=== PATIENT | male | born 1970 | race Hispanic/Latino ===

== ENCOUNTER 2019-02-07 20:24 | Inpatient (IN) | payer BC, SELFPAY ==
[2019-02-07 21:13] LABS: Absolute Neutrophil 15.6 K/uL (1.8-8.0); Basophils % 0.6 % (0-1.3); Eosinophils % 0.7 % (0-4.4); Hematocrit 48.4 % (39.6-49.0); Lymphocytes % 19.3 % (15.3-44.8); MPV 9.1 fL (7.6-11.3); Monocytes % 4.7 % (3.3-12.3); RBC Red Blood Cell Count 5.45 M/uL (4.33-5.43)
[2019-02-07] MEDS ORDERED: MORPHINE 4 MG/ML SYR ONE ×2 (21:16→23:20)
[2019-02-07] MEDS ORDERED: ONDANSETRON 4 MG/2 ML VIAL ONE (21:16)
[2019-02-07 21:36] LABS: ALT/SGPT 27 U/L (12-78); AST/SGOT 14 U/L (15-37); Albumin 3.8 g/dL (3.4-5.0); Alkaline Phosphatase 76 U/L (45-117); BUN Blood Urea Nitrogen 17 mg/dL (7-18); Bicarbonate 24 mmol/L (21-32); Bilirubin Direct 0.1 mg/dL (0-0.2); Bilirubin Total 0.7 mg/dL (0.2-1.0); Glucose Level 113 mg/dL (74-106); Lipase 113 U/L (73-393); Sodium Level 141 mmol/L (136-145); Troponin (Emerg Dept Use Only) < 0.02 ng/mL (0.0-0.045)
[2019-02-07 21:40] LABS: Potassium 2.9 mmol/L (3.5-5.1)
[2019-02-07 21:45] LABS: Blood Morphology Comment NOT SEEN (NOT SEEN); Platelet Estimate ADEQ
[2019-02-07] MEDS ORDERED: NA CHLORIDE 0.9% 1,000 ML ONE (22:33)
--- NOTE | 2019-02-07 23:25 | EDPHYS ---
Physician Documentation [facility] Name: Seng Daugherty Age: 48 yrs Sex: Male : 1970 Arrival Date: 02/07/2019 Time: 20:27 Bed 13 Private MD: ED Physician Judah Dan HPI: 02/07 20:43 This 48 yrs old Male presents to ER via Wheelchair with complaints of jmm Abdominal Pain. 20:43 The patient presents with abdominal pain that is diffuse. Onset: The symptoms/episode jmm began/occurred acutely, at 16:30. The symptoms do not radiate. Associated signs and symptoms: Pertinent positives: nausea and vomiting, Pertinent negatives: diarrhea. The symptoms are described as achy, sharp. Modifying factors: The symptoms are alleviated by nothing, the symptoms are aggravated by. This is a 48 year old male a history of htn that presents to the ED with complaints of diffuse abdominal pain beginning at approx 430 pm. Patient denies similar episode. Denies recent surgery. Denies infectious exposure. . Historical: - Allergies: 20:34 No Known Allergies; aj1 - Home Meds: 20:34 None [Active]; aj1 - PMHx: 20:34 Hypertension; aj1 - PSHx: 20:34 None; aj1 - Immunization history:: Adult Immunizations up to date. - Social history:: Smoking status: Patient uses tobacco products, smokes one pack cigarettes per day. - Ebola Screening: : Patient denies travel to an Ebola-affected area in the 21 days before illness onset. ROS: 20:43 Constitutional: Negative for fever, chills, and weight loss, Cardiovascular: Negative jmm for chest pain, palpitations, and edema, Respiratory: Negative for shortness of breath, cough, wheezing, and pleuritic chest pain. 20:43 Abdomen/GI: Positive for abdominal pain, nausea and vomiting. 20:43 All other systems are negative. Exam: 20:43 Head/Face: atraumatic. Eyes: EOMI, no conjunctival erythema appreciated ENT: Moist jmm Mucus Membranes Neck: Trachea midline, Supple Chest/axilla: Normal chest wall appearance and motion. Cardiovascular: Regular rate and rhythm. No edema appreciated Respiratory: Normal respirations, no respiratory distress appreciated 20:43 Back: Normal ROM Skin: General appearance color normal MS/ Extremity: Moves all extremities, no obvious deformities appreciated, no edema noted to the lower extremities Neuro: Awake and alert, normal gait Psych: Behavior is normal, Mood is normal, Patient is cooperative and pleasant 20:43 Constitutional: The patient appears alert, awake, in obvious pain, uncomfortable. 20:43 Abdomen/GI: Inspection: abdomen appears normal, Bowel sounds: normal, Palpation: soft, moderate abdominal tenderness, in all quadrants. Vital Signs: 20:34 BP 136 / 89; Pulse 83; Resp 18; Temp 97.9; Pulse Ox 100% on R/A; Weight 72.57 kg (R); aj1 Height 5 ft. 6 in. (167.64 cm) (R); Pain 10/10; 22:20 BP 142 / 96; Pulse 72; Resp 16; Pulse Ox 99% on R/A; jb4 23:30 BP 160 / 96; Pulse 79; Resp 16; Pulse Ox 100% on R/A; Pain 4/10; jb4 02/08 01:00 BP 166 / 93; Pulse 66; Resp 16; Temp 98.8(O); Pulse Ox 99% on R/A; jb4 02:00 BP 172 / 91; Pulse 72; Resp 16; Pulse Ox 100% on R/A; jb4 02:50 BP 137 / 71; Pulse 65; Resp 16; Temp 98.8(O); Pulse Ox 99% on R/A; jb4 02/07 20:34 Body Mass Index 25.82 (72.57 kg, 167.64 cm) aj1 MDM: 02/07 20:43 Patient medically screened. [facility] 23:23 Data reviewed: vital signs, nurses notes. Data interpreted: Pulse oximetry: on room air kb is 99 %. Interpretation: normal. Counseling: I had a detailed discussion with the patient and/or guardian regarding: the historical points, exam findings, and any diagnostic results supporting the discharge/admit diagnosis, lab results, radiology results, the need for further work-up and treatment in the hospital. Physician consultation: Francisco Pond MD was called at 23:23, regarding consult, patient's condition, and will see patient in inpatient room. 23:23 Physician consultation: Daniela Pond MD was called at 23:23, regarding admission, to [facility] the medical/surgical unit. patient's condition, and will see patient shortly. 02/07 20:43 Order name: Basic Metabolic Panel [facility] 02/07 20:43 Order name: CBC with Diff [facility] 02/07 20:43 Order name: Creatinine for Radiology [facility] 02/07 20:43 Order name: Hepatic Function; Complete Time: 21:47 [facility] 02/07 20:43 Order name: Lipase; Complete Time: 21:47 [facility] 02/07 20:43 Order name: Lactate; Complete Time: 21:47 [facility] 02/07 20:43 Order name: Troponin (emerg Dept Use Only); Complete Time: 21:47 [facility] 02/07 20:44 Order name: Basic Metabolic Panel; Complete Time: 21:47 [facility] 02/07 20:44 Order name: CBC with Automated Diff; Complete Time: 21:47 [facility] 02/07 20:44 Order name: Creatinine (Radiology Only); Complete Time: 21:33 [facility] 02/07 21:08 Order name: Type And Screen; Complete Time: 22:14 [facility] 02/07 21:45 Order name: Manual Differential; Complete Time: 21:47 [facility] 02/07 22:16 Order name: ABO/RH no charge; Complete Time: 22:16 [facility] 02/08 02:26 Order name: Comprehensive Metabolic Panel [facility] 02/07 20:43 Order name: IV Saline Lock; Complete Time: 21:01 [facility] 02/07 20:43 Order name: Labs collected and sent; Complete Time: 21:01 [facility] 02/07 20:43 Order name: CT Abd/Pelvis - W/Contrast [facility] 02/07 20:43 Order name: EKG - Nurse/Tech; Complete Time: 21:19 [facility] 02/08 02:26 Order name: Comprehensive Metabolic Panel [facility] 02/08 02:27 Order name: CONS Pharmacy Consult [facility] 02/08 02:27 Order name: NPO [facility] 02/08 03:16 Order name: Lactate Sepsis 2 HR Follow-up; Complete Time: 10:07 EDMS Administered Medications: 21:07 Drug: Zofran 4 mg Route: IVP; Site: right antecubital; jb4 21:30 Follow up: Response: No adverse reaction; Nausea is decreased jb4 21:11 Drug: morphine 4 mg Route: IVP; Site: right antecubital; jb4 21:40 Follow up: Response: No adverse reaction; Pain is decreased jb4 22:22 Drug: NS 0.9% 1000 ml Route: IV; Rate: 1 bolus; Site: right antecubital; jb4 23:20 Follow up: Response: No adverse reaction; IV Status: Completed infusion; IV Intake: jb4 1000ml 23:17 Drug: morphine 4 mg Route: IVP; Site: right antecubital; jb4 23:43 Follow up: Response: No adverse reaction; Pain is decreased jb4 23:42 Drug: NS 0.9% with KCl 20 mEq/L 1000 ml Route: IV; Rate: 125 ml/hr; Site: right jb4 antecubital; 02/08 04:04 Follow up: Response: No adverse reaction; IV Status: Infusion continued upon admission; jb4 IV Intake: 500ml 02/07 23:44 Not Given (Physician Discretion): cefOXitin 2 grams IVPB once over 30 mins; (mix in 100 jb4 mL NS) 02/08 01:59 Drug: cefOXitin 1 grams {Note: given IVP Per pharmacy protocol.} Route: IVPB; Infused jb4 Over: 30 mins; Site: right antecubital; 02:02 Follow up: Response: No adverse reaction; IV Status: Completed infusion; IV Intake: [id number] Disposition: 02/07/19 23:24 Hospitalization ordered by Daniela Pond for Observation. Preliminary diagnosis are Generalized abdominal pain, Elevated white blood cell count, Hypokalemia. - Bed requested for Telemetry/MedSurg (observation). - Status is Observation. jb4 - Condition is Stable. - Problem is new. - Symptoms are unchanged. UTI on Admission? No Signatures: Dispatcher [employer] EDHI Raven Webb, RO-C RO-Eugenia Monson RN RN Terri Monzon RN Erickson Hooper PA PA jmm Bryson, James, RN RN jb4 Corrections: (The following items were deleted from the chart) 02/07 23:25 23:24 Hospitalization Ordered by Daniela Pond MD for Observation. Preliminary kb diagnosis is Generalized abdominal pain. Bed requested for Telemetry/MedSurg (observation). Status is Observation. Condition is Stable. Problem is new. Symptoms are unchanged. UTI on Admission? No. kb 05/09 02:36 02/07 23:25 02/07/2019 23:24 Hospitalization Ordered by Daniela Pond MD for mw Observation. Preliminary diagnosis is Generalized abdominal pain; Elevated white blood cell count; Hypokalemia. Bed requested for Telemetry/MedSurg (observation). Status is Observation. Condition is Stable. Problem is new. Symptoms are unchanged. UTI on Admission? No. kb 02/08 04:07 02:36 02/07/2019 23:24 Hospitalization Ordered by Daniela Pond MD for Observation. jb4 Preliminary diagnosis is Generalized abdominal pain; Elevated white blood cell count; Hypokalemia. Bed requested for Telemetry/MedSurg (observation). Status is Observation. Condition is Stable. Problem is new. Symptoms are unchanged. UTI on Admission? No. mw
--- NOTE | 2019-02-07 23:25 | ER ---
Nurse's Notes [facility] Name: Seng Daugherty Age: 48 yrs Sex: Male : 1970 Arrival Date: 02/07/2019 Time: 20:27 Bed 13 Private MD: Diagnosis: Generalized abdominal pain;Elevated white blood cell count;Hypokalemia Presentation: 02/07 20:32 Presenting complaint: Patient states: Diffuse abdominal pain since 1630 today that aj1 became severe an hour ago. Patient reports vomiting, denies diarrhea, denies fever. Patient is diaphoretic, grabbing his stomach, restless. Reports that he thinks it might be related to a male enhancement pill that he took around noon. Transition of care: patient was not received from another setting of care. Onset of symptoms was February 07, 2019 at 16:30. Risk Assessment: Do you want to hurt yourself or someone else? Patient reports no desire to harm self or others. Initial Sepsis Screen: Does the patient meet any 2 criteria? No. Patient's initial sepsis screen is negative. Does the patient have a suspected source of infection? Yes: Acute abdominal pain. Care prior to arrival: None. 20:32 Method Of Arrival: Wheelchair aj1 20:32 Acuity: JARED 2 aj1 Triage Assessment: 20:34 General: Appears uncomfortable, Behavior is cooperative, restless. Pain: Complains of aj1 pain in abdomen diffusely Pain currently is 10 out of 10 on a pain scale. Neuro: Level of Consciousness is awake, alert, obeys commands. Cardiovascular: Patient's skin is warm and dry. Respiratory: Airway is patent Respiratory effort is even, unlabored, Respiratory pattern is regular, symmetrical. GI: Abdomen is flat, non-distended, Reports lower abdominal pain, upper abdominal pain. Historical: - Allergies: 20:34 No Known Allergies; aj1 - Home Meds: 20:34 None [Active]; aj1 - PMHx: 20:34 Hypertension; aj1 - PSHx: 20:34 None; aj1 - Immunization history:: Adult Immunizations up to date. - Social history:: Smoking status: Patient uses tobacco products, smokes one pack cigarettes per day. - Ebola Screening: : Patient denies travel to an Ebola-affected area in the 21 days before illness onset. Screenin:56 Abuse screen: Denies threats or abuse. Nutritional screening: No deficits noted. jb4 Tuberculosis screening: No symptoms or risk factors identified. Fall Risk IV access (20 points). Total Crawford Fall Scale indicates No Risk (0-24 pts). Assessment: 20:56 General: Appears distressed, uncomfortable, Behavior is cooperative, agitated, anxious. jb4 Pain: Complains of pain in abdomen Pain does not radiate. Pain currently is 10 out of 10 on a pain scale. Quality of pain is described as stabbing, Pain began 1630. Neuro: Level of Consciousness is awake, alert, obeys commands, Oriented to person, place, time, situation. Cardiovascular: Patient's skin is warm and dry. Respiratory: Airway is patent Respiratory effort is even, unlabored, Respiratory pattern is symmetrical, tachypnea. GI: Abdomen is flat, non-distended, Bowel sounds present X 4 quads. Abd is soft X 4 quads Abdomen is tender to palpation X 4 quads. : No signs and/or symptoms were reported regarding the genitourinary system. EENT: No signs and/or symptoms were reported regarding the EENT system. Derm: Skin is intact, Skin is pink, warm \T\ dry. Musculoskeletal: Circulation, motion, and sensation intact. 22:00 Reassessment: Patient appears in no apparent distress at this time. Patient and/or jb4 family updated on plan of care and expected duration. Pain level reassessed. Patient is alert, oriented x 3, equal unlabored respirations, skin warm/dry/pink. Patient states feeling better. 23:00 Reassessment: Patient appears in no apparent distress at this time. Patient and/or jb4 family updated on plan of care and expected duration. Pain level reassessed. Patient is alert, oriented x 3, equal unlabored respirations, skin warm/dry/pink. Pt reports increase in pain, provider notified, see MAR for orders. 02/08 00:00 Reassessment: Patient appears in no apparent distress at this time. Patient and/or jb4 family updated on plan of care and expected duration. Pain level reassessed. Patient is alert, oriented x 3, equal unlabored respirations, skin warm/dry/pink. 01:00 Reassessment: Patient appears in no apparent distress at this time. Patient and/or jb4 family updated on plan of care and expected duration. Pain level reassessed. Patient is alert, oriented x 3, equal unlabored respirations, skin warm/dry/pink. Patient states feeling better. 02:30 Reassessment: Patient appears in no apparent distress at this time. Patient and/or jb4 family updated on plan of care and expected duration. Pain level reassessed. Patient is alert, oriented x 3, equal unlabored respirations, skin warm/dry/pink. 03:45 Reassessment: Patient appears in no apparent distress at this time. Patient and/or jb4 family updated on plan of care and expected duration. Pain level reassessed. Patient is alert, oriented x 3, equal unlabored respirations, skin warm/dry/pink. Vital Signs: 02/07 20:34 BP 136 / 89; Pulse 83; Resp 18; Temp 97.9; Pulse Ox 100% on R/A; Weight 72.57 kg (R); aj1 Height 5 ft. 6 in. (167.64 cm) (R); Pain 10/10; 22:20 BP 142 / 96; Pulse 72; Resp 16; Pulse Ox 99% on R/A; jb4 23:30 BP 160 / 96; Pulse 79; Resp 16; Pulse Ox 100% on R/A; Pain 4/10; jb4 02/08 01:00 BP 166 / 93; Pulse 66; Resp 16; Temp 98.8(O); Pulse Ox 99% on R/A; jb4 02:00 BP 172 / 91; Pulse 72; Resp 16; Pulse Ox 100% on R/A; jb4 02:50 BP 137 / 71; Pulse 65; Resp 16; Temp 98.8(O); Pulse Ox 99% on R/A; jb4 02/07 20:34 Body Mass Index 25.82 (72.57 kg, 167.64 cm) aj ED Course: 02/07 20:27 Patient arrived in ED. 4 20:34 Triage completed. aj1 20:34 Arm band placed on Patient Patient triaged in bed 13. Primary nurse notified of patient aj1 diaphoretic, severe abdominal pain. 20:38 [facility] 20:38 Judah Dan MD is Attending Physician. dyana 20:46 Radiology exam delayed due to lab results not completed at this time. (BUN/Creatinine). vm2 20:56 Patient has correct armband on for positive identification. Placed in gown. Bed in low jb4 position. Call light in reach. Side rails up X 1. Pulse ox on. NIBP on. 20:56 Initial lab(s) drawn, by me, sent to lab. EKG done, by ED staff, reviewed by Erickson HUBBARD. Inserted saline lock: 20 gauge in right antecubital area, using aseptic technique. Blood collected. 21:00 Chip Hahn, RN is Primary Nurse. jb4 21:41 Notified Nurse Practitioner and/or Physician Lane Attendant of a critical lab result(s), lp1 lactate 3.1, Potassium 2.9. 22:13 CT Abd/Pelvis - W/Contrast In Process Unspecified. EDMS 22:16 PHCP role handed off by Erickson Estes PA kb 22:16 Raven Webb FNP-C is PHCP. kb 23:24 Daniela Pond MD is Hospitalizing Provider. kb 02/08 03:45 No provider procedures requiring assistance completed. Patient admitted, IV remains in jb4 place. Administered Medications: 02/07 21:07 Drug: Zofran 4 mg Route: IVP; Site: right antecubital; jb4 21:30 Follow up: Response: No adverse reaction; Nausea is decreased jb4 21:11 Drug: morphine 4 mg Route: IVP; Site: right antecubital; jb4 21:40 Follow up: Response: No adverse reaction; Pain is decreased jb4 22:22 Drug: NS 0.9% 1000 ml Route: IV; Rate: 1 bolus; Site: right antecubital; jb4 23:20 Follow up: Response: No adverse reaction; IV Status: Completed infusion; IV Intake: jb4 1000ml 23:17 Drug: morphine 4 mg Route: IVP; Site: right antecubital; jb4 23:43 Follow up: Response: No adverse reaction; Pain is decreased jb4 23:42 Drug: NS 0.9% with KCl 20 mEq/L 1000 ml Route: IV; Rate: 125 ml/hr; Site: right jb4 antecubital; 02/08 04:04 Follow up: Response: No adverse reaction; IV Status: Infusion continued upon admission; jb4 IV Intake: 500ml 02/07 23:44 Not Given (Physician Discretion): cefOXitin 2 grams IVPB once over 30 mins; (mix in 100 jb4 mL NS) 02/08 01:59 Drug: cefOXitin 1 grams {Note: given IVP Per pharmacy protocol.} Route: IVPB; Infused jb4 Over: 30 mins; Site: right antecubital; 02:02 Follow up: Response: No adverse reaction; IV Status: Completed infusion; IV Intake: [id number] Intake: 02/07 23:20 IV: 1000ml; Total: 1000ml. jb4 02/08 02:02 IV: 10ml; Total: 1010ml. jb4 04:04 IV: 500ml; Total: 1510ml. jb4 Outcome: 02/07 23:24 Decision to Hospitalize by Provider. kristen 02/08 03:45 Admitted to Med/surg accompanied by tech, family with patient, room 204, with chart, jb4 Report called to GILBERTO Chávez Condition: stable Discharge instructions given to patient, family, Instructed on the need for admit, Demonstrated understanding of instructions. 04:07 Patient left the ED. jb4 Signatures: Dispatcher [employer] EDMS Raven Webb, BRICK BURNER-C BRICK BURNER-CkEugenia Millard, RN RN aj1 Erickson Estes PA PA jmm Pena, Laura, GILBERTO RN lp1 Chip Hahn RN RN jb4 Lelo Frazier [facility]
[2019-02-07] MEDS ORDERED: NS KCL 20MEQ 1,000 ML IV ONE (23:46)
[2019-02-08] MEDS ORDERED: CEFOXITIN/SWI 1gm 1 GM/10 ML SYR ONE (01:47)
[2019-02-08] MEDS ORDERED: ONDANSETRON 4 MG/2 ML VIAL IV PRN (02:23)
[2019-02-08] MEDS: MORPHINE 4 MG/ML SYR IV PRN (04:33)
[2019-02-08 05:12] LABS: Urine Appearance CLEAR; Urine Bilirubin NEGATIVE (NEG); Urine Blood 1+ (NEG); Urine Color YELLOW; Urine Glucose TRACE (NEG); Urine Protein NEGATIVE (NEG); Urine Specific Gravity >=1.030 (1.005-1.030); Urine Urobilinogen 0.2 mg/dL (0.2-1.0); Urine pH 7.5 (5.0-7.0)
[2019-02-08] MEDS ORDERED: PIPERACIL/TAZO 3.375 GM VIAL IV ONE (05:14)
[2019-02-08] MEDS ORDERED: NA CHLORIDE 0.9% 100 ML ONE (05:17)
[2019-02-08 05:24] LABS: Urine Microscopic Reflex ORDER UMIC
[2019-02-08] MEDS: NA CHLORIDE 0.9% 1,000 ML IV SCH ×2 (05:27→13:00)
[2019-02-08 05:33] LABS: Urine Bacteria <20 /HPF (NONE SEEN); Urine Culture Reflex Order NOT NEEDED; Urine RBC <5 /HPF (NONE SEEN)
[2019-02-08] MEDS ORDERED: PIPER/TAZO/NS 3.375gm 3.375 GM/100 ML BAG IVPB SCH (06:00)
[2019-02-08] MEDS ORDERED: Levofloxacin500mg IV 500 MG/100 ML BAG IV SCH (07:00)
[2019-02-08 07:25] LABS: Magnesium 2.1 mg/dL (1.8-2.4); Potassium 3.8 mmol/L (3.5-5.1)
--- NOTE | 2019-02-08 08:34 | EKG ---
Test Date: 2019-02-07 Test Time: 21:16:26 Driving Teacher: CONRADO MEASUREMENT RESULTS: Intervals: Rate: 79 VA: 150 QRSD: 102 QT: 398 QTc: 456 [place]: P: 64 VA: 150 QRS: -30 T: 17 INTERPRETIVE STATEMENTS: Sinus rhythm with frequent premature ventricular complexes Left axis deviation Abnormal ECG Compared to ECG 11/19/2013 08:36:14 Ventricular premature complex(es) now present Left-axis deviation now present Sinus arrhythmia no longer present Electronically Signed On 02-08-19 08:33:48 CDT by Ward Flowers
[2019-02-08] MEDS: Levofloxacin500mg IV 500 MG/100 ML BAG IV SCH (08:57)
[2019-02-08] MEDS: METRONIDAZOLE 500mg IVPB 500 MG/100 ML BAG IV SCH ×4 (08:59→23:16)
--- NOTE | 2019-02-08 10:14 | RAD REPORT ---
EXAM DESCRIPTION: CT - Abdomen Pelvis W Contrast - 02/07/2019 10:13 pm CLINICAL HISTORY: 48 years Male, abdominal pain, IV ONLY COMPARISON: None. TECHNIQUE: 5 mm arterial and venous phase axial images of the abdomen and pelvis were obtained with intravenous contrast. 1.5 mm reformatted coronal and sagittal images of the venous phase images were obtained.. This exam was performed according to our departmental dose-optimization program, which includes autom ated exposure control, adjustment of the mA and/or kV according to patient size and/or use of iterati ve reconstruction technique. INTRAVENOUS CONTRAST: Not documented. Please refer to medical record. FINDINGS: Lung bases: Normal. Liver: Normal. Spleen: Normal. Pancreas: Normal. Gallbladder: There is evidence of cholelithiasis. Right adrenal gland: Normal. Left adrenal gland: Normal. Right kidney: Normal. Left kidney: Normal. Retroperitoneal structures: There is severe atherosclerotic disease about the abdominal aorta and radha ac arteries.. Bowel survey: Normal. The appendix is mildly and diffusely distended measuring 0.8 cm in diameter. Th ere is no mural thickening or periappendiceal edema. Findings are likely normal for patient. Urinary bladder: Normal. Prostate gland: Normal size. Peritoneal cavity: Normal. Mesentery structures: Normal. Abdominal wall: No hernia. Bony structures: No suspicious lesions. IMPRESSION: 1. Cholelithiasis. 2. Mild diffuse distention of the appendix with no evidence of mural thickening or periappendiceal ed rosa to suggest acute appendicitis. This likely is normal for patient or could represent very early on set of appendicitis. Clinical correlation recommended. 3. Atherosclerotic disease. NOTIFICATION: Results were discussed with the ER doctor at 10:25 PM. Electronically signed by: Kash Gonzalez MD 02/07/2019 10:26 PM CDT Due to temporary technical issues with the PACS/Fluency reporting system, reports are being signed by the in house radiologist as a courtesy to ensure prompt reporting. The interpreting radiologist is f prietoly responsible for the content of the report. ADDENDUM: The patient's consulting surgeon requested a second opinion and review of the CT examinati on. The 02/07/2019 CT abdomen and pelvis images were reviewed. Acute appendicitis is not suspected. The base of the appendix does not appear dilated. No appendicoli th is present. There is air near the tip of the appendix. No periappendiceal inflammatory stranding o r edema is seen. There are several loops of distal small bowel that show enhancement of the wall. A small bowel enteri tis or ileitis is favored over appendicitis. If the patient has progressive right lower quadrant symptoms, re- imaging could be performed to deter mine if the patient may have currently a very early appendicitis.
--- NOTE | 2019-02-08 18:11 | CON ---
Date of Consultation: 02/08/2019 Brief History Of Present Illness: The patient is a 48-year-old male, who presents to the [facility] with approximately 1-day history of vague generalized abdominal pain with no focality. He sta dion he has never had similar episodes before in the past. It was not exacerbated or brought on by an y particular meal. No sick contacts. No recent travel. He notes he has never had similar episodes before in the past. No change in bowel or bladder habits. No nausea, vomiting. No constipation, di arrhea. Past Medical History: Significant for hypertension. Past Surgical History: Negative. Home Medications: None. Allergies: NO KNOWN DRUG ALLERGIES. Social History: He smokes 1/2 pack cigarettes per day x40 years. He states he drinks alcohol. His family has stated he drinks between 12 beers a day to sometimes more. He also drinks tequila in ann marie tion on a daily basis and has heavy alcohol dependence. He denies any recreational drug use. Family History: Reviewed, noncontributory. Review of Systems: A 10-point review of systems other than HPI, denies. Physical Examination: Vital Signs: At the time of examination, his vital signs were, a BMI of 24.8. His blood pressure 13 7/83, respiratory rate 16 breaths, pulse is 82, temperature 98.5. General: He is awake, alert, and oriented. Psychiatric: He is appropriate, conversive. HEENT: He is normocephalic. Sclerae are anicteric. His mucous membranes are moist. Oropharynx is clear. Neck: Supple. No JVD. Chest: Normal expansion and excursion. Cardiovascular: Regular rate and rhythm. Pulmonary: Clear to auscultation bilaterally. Abdomen: Soft with mild global tenderness to palpation. No rebound. No guarding. No focal periton itis. Negative Schmitt sign. Negative psoas sign. Extremities: No clubbing, cyanosis, or edema. Laboratory Data: Reveals a white blood cell count of 12.9, hemoglobin is 16.2, hematocrit of 48.5, p latelet count is 209. Neutrophils are 74%. His sodium was 141, potassium 2.9 and recheck is 3.8, ch loride 107, carbon dioxide 24, BUN 17, creatinine 1.08, glucose is 113. Lactic acid 3.1; on second c heck, it is at 0.9. Calcium 8.6, magnesium 2.1, total bilirubin 0.7, direct component 0.1, AST 14, A LT 27, alkaline phosphatase is 76. Rapid troponin less than 0.02. Lipase is 113. UA showed 2+ keto kemi and 1+ blood. He had a CT scan performed of the abdomen and pelvis, which I have personally revi ewed with the radiologist. The official dictation states that there was cholelithiasis, mild diffuse distention of the appendix with no evidence of mural thickening or periappendiceal edema to suggest acute appendicitis. It is likely normal for the patient, could represent early onset appendicitis. Clinical correlation is recommended. Atherosclerotic sclerotic disease. The addendum was reviewed b yousif Willis, who states acute appendicitis is not suspected. The base of the appendix does not marlo ear dilated. No appendicolith is present. There was air near the tip of the appendix. No periappen diceal inflammatory stranding or edema seen, but several loops of distal small bowel. However, this show enhancement of the wall. A small bowel enteritis or ileitis is favored over appendicitis that t he patient had progressive right lower quadrant symptoms where EMG could be performed to determine if the patient has currently a very early appendicitis. Assessment And Plan: This is a 48-year-old gentleman, who presents with signs and symptoms of an ent eritis type picture versus ileitis. 1.IV fluid hydration. 2.Antibiotic coverage. 3.Serial abdominal exams. 4.I have explained that we will follow along closely and if the patient develops signs and symptoms of acute appendicitis, he will be taken to the operating room for laparoscopic, possible open appende ctomy. Risks include bleeding, infection, damage to the surrounding tissues, need further operating procedures. The patient agrees to proceed. We will continue with medical nonoperative management at this time. Thank you for this interesting consult. [place]/ESTEBAN Voice ID: [id number] Report ID: [id number]
[2019-02-08] MEDS: ACETAMINOPHEN 500 MG TAB PO PRN (22:02)
--- NOTE | 2019-02-09 01:15 | P.HP ---
Certification for Inpatient Patient admitted to: Inpatient With expected LOS: >2 Midnights Patient will require the following post-hospital care: None Practitioner: I am a practitioner with admitting privileges, knowledge of patient current condition, hospital course, and medical plan of care. Services: Services provided to patient in accordance with Admission requirements found in Title 42 Section 412.3 of the Code of Federal Regulations Patient History Date of Service: 02/08/19 Reason for admission: Abdominal pain/leukocytosis History of Present Illness: Patient is a 48-year-old gentleman who came into the hospital with abdominal pain. Pain is been going on for the last 12 hr. It became very severe so he came into the emergency room for further evaluation. In the emergency room patient had labs which revealed he had a leukocytosis. His CT scan results per ER physician revealed possible appendicitis. Surgery was consulted were asked to assist in patient's care as attending. Will go ahead and admit the patient to the hospital for possible appendicitis. Will continue on IV antibiotics. Patient is a heavy drinker as the drinks about a 12 pack daily along with some Tequila. At this time he will be admitted to the hospital inpatient treatment. He will be NPO and will await surgery input in the morning. Pain was mainly in the right lower quadrant. Patient had radiation to the left side. Patient also had rebound tenderness. Allergies No Known Allergies Allergy (Unverified 02/08/19 04:28) Home Medications: NK [No Home Meds] 02/08/19 - Past Medical/Surgical History Has patient received pneumonia vaccine in the past: No Diabetic: No -: Hypertension Past Surgical History: Patient denies surgical history - Family History Father Medical History: Hypertension, Diabetes Mother Medical History: Hypertension - Social History Smoking Status: Current every day smoker Alcohol use: Yes CD- Drugs: No Caffeine use: Yes Place of Residence: Home Review of Systems 10-point ROS is otherwise unremarkable Physical Examination - Vital Signs Temperature: 97.9 F Blood Pressure: 116/76 Pulse: 71 Respirations: 16 Pulse Ox (%): 98 - Physical Exam General: Alert, In no apparent distress, Oriented x3 HEENT: Atraumatic, PERRLA, Mucous membr. moist/pink, EOMI, Sclerae nonicteric Neck: Supple, 2+ carotid pulse no bruit, No LAD, Without JVD or thyroid abnormality Respiratory: Clear to auscultation bilaterally, Normal air movement Cardiovascular: Regular rate/rhythm, Normal S1 S2, No murmurs Gastrointestinal: Hypoactive, Non-distended, Tenderness, Rebound, Guarding Musculoskeletal: No clubbing, No swelling, No tenderness Integumentary: No rashes Neurological: Normal gait, Normal speech, Normal strength at 5/5 x4 extr, Normal tone, Sensation intact, Cranial nerves 3-12 intact, Normal affect Lymphatics: No axilla or inguinal lymphadenopathy Assessment & Plan - Problems (Diagnosis) (1) Abdominal pain Current Visit: Yes Status: Acute (2) Leukocytosis Current Visit: Yes Status: Acute (3) Alcohol abuse Current Visit: Yes Status: Acute - Plan 1. Continue with IV hydration 2. Continue with IV antibiotics 3. Continue with pain control 4. NPO 5. General surgery consultation; 6. Serial H&H, and we will monitor CBC, BMP, LFTs and lipase along with electrolytes. 7. GI and DVT prophylaxis Discharge Plan: Home Plan to discharge in: Greater than 2 days - Advance Directives Does patient have a Living Will: No Does patient have a Durable POA for Healthcare: No - Code Status/Comfort Care Code Status Assessed: Yes Code Status: Full Code Critical Care: No Time Spent Managing PTS Care (In Minutes): 45
[2019-02-09] MEDS: NA CHLORIDE 0.9% 1,000 ML IV SCH ×4 (01:22→23:39)
[2019-02-09] MEDS: METRONIDAZOLE 500mg IVPB 500 MG/100 ML BAG IV SCH ×4 (05:14→23:39)
--- NOTE | 2019-02-09 05:18 | HP ---
Date of Admission: 02/07/2019 Chief Complaint: Abdominal pain. History Of Present Illness: This patient was brought to the emergency room with history of lower abd ominal pain, nausea, and vomiting. No history of diarrhea. The patient had a CAT scan and blood wor k done. His white count was elevated. CAT scan showed thickening of the small bowel in the right lo wer quadrant. The patient is admitted and he was seen by brand sales consultant. Later on, this patien t was transferred to my service. Past Medical History: The patient does not have any chronic illnesses. Past Surgical History: The patient does not have prior history of surgical procedures on the abdomen . Family History: Noncontributory. Allergies: NONE. Review of Systems: The patient denied any history of rectal bleeding. Physical Examination: General: Revealed a well built male in pwyn-ig-exwsltiz pain. Vital Signs: Temperature normal at the time of exam. HEENT: No icterus. Neck: Supple. JVD negative. Chest: Clear. Heart: Regular. Abdomen: Tender right lower quadrant. No palpable mass. Extremities: No edema. Laboratory Data: Elevated white count as documented on the CBC. CAT scan: Evidence of thickening o f small bowel. No evidence of appendicitis as per the CAT scan report. Gallstone presence noted. Assessment: 1.Abdominal pain with CT evidence of thickening of the small bowel. Rule out Crohn disease. 2.Cholelithiasis. Plan: NPO. IV antibiotics. IV fluids. GI consultation. [place]/ESTEBAN Voice ID: [id number]
[2019-02-09 06:40] LABS: Absolute Lymphocytes (CBC) 1.8 K/uL (0.7-4.9); Absolute Monocytes 0.6 K/uL (0.1-1.3); Absolute Neutrophil 8.2 K/uL (1.8-8.0); Basophils % 0.8 % (0-1.3); Eosinophils % 0.6 % (0-4.4); Hematocrit 45.2 % (39.6-49.0); MPV 9.1 fL (7.6-11.3); Monocytes % 5.7 % (3.3-12.3); RBC Red Blood Cell Count 5.02 M/uL (4.33-5.43)
[2019-02-09 06:58] LABS: ALT/SGPT 18 U/L (12-78); AST/SGOT 10 U/L (15-37); Alkaline Phosphatase 59 U/L (45-117); BUN Blood Urea Nitrogen 12 mg/dL (7-18); Bicarbonate 24 mmol/L (21-32); Bilirubin Total 1.1 mg/dL (0.2-1.0); Glucose Level 83 mg/dL (74-106); Potassium 3.9 mmol/L (3.5-5.1); Sodium Level 141 mmol/L (136-145)
[2019-02-09 07:03] LABS: Protime INR 1.35
--- NOTE | 2019-02-09 08:57 | P.PN ---
Subjective Date of Service: 02/09/19 Chief Complaint: Abdominal pain/leukocytosis Subjective: Improving (Pain much improved more localized to RLQ, + gas, no nausea emesis) Physical Examination - Vital Signs Temperature: 97.6 F Blood Pressure: 124/76 Pulse: 80 Respirations: 16 Pulse Ox (%): 98 - Physical Exam General: Alert, In no apparent distress, Cooperative Gastrointestinal: Other (soft, mild Right sided TTP, ND) Assessment And Plan - Current Problems (Diagnosis) (1) Abdominal pain Current Visit: Yes Status: Acute Plan: - continue IV hydration - CT scan of abdomen and pelvis to rule out appendicitis - serial exams - will start PO diet if CT is negative for surgical issues
--- NOTE | 2019-02-09 09:15 | ECHO ---
HEIGHT: 5 ft 7 in WEIGHT: 158 lb 6 oz DATE OF STUDY: 02/[address]: Daniela Pond MD 2-DIMENSIONAL: YES M.MODE: YES DOPPLER: YES COLOR FLOW: YES TDS: NO PORTABLE: NO DEFINITY: NO BUBBLE STUDY: NO DIAGNOSIS: MULTIPLE PREMATURE ATRIAL COMPLEXES CARDIAC HISTORY: CATHERIZATION: NO SURGERY: NO PROSTHETIC VALVE: NO PACEMAKER: NO MEASUREMENTS (cm) DIASTOLIC (NORMALS) SYSTOLIC (NORMALS) IVSd 1.1 (0.6-1.2) LA Diam 3.2 (1.9-4.0) LVEF 60% LVIDd 4.1 (3.5-5.7) LVIDs 2.8 (2.0-3.5) %FS 32% LVPWd 1.2 (0.6-1.2) Ao Diam 2.8 (2.0-3.7) 2 DIMENSIONAL ASSESSMENT: RIGHT ATRIUM: NORMAL LEFT ATRIUM: NORMAL RIGHT VENTRICLE: NORMAL LEFT VENTRICLE: NORMAL TRICUSPID VALVE: NORMAL MITRAL VALVE: NORMAL PULMONIC VALVE: NORMAL AORTIC VALVE: NORMAL PERICARDIAL EFFUSION: NONE AORTIC ROOT: NORMAL LEFT VENTRICULAR WALL MOTION: NORMAL. DOPPLER/COLOR FLOW: NORMAL. COMMENTS: NORMAL 2D ECHO WITH DOPLER. NO WALL MOTION ABNORMALITY. NO MITRAL VALVE PROLAPSE. TECHNOLOGIST: DANIE MENDOZA
[2019-02-09] MEDS: Levofloxacin500mg IV 500 MG/100 ML BAG IV SCH (09:39)
--- NOTE | 2019-02-09 11:08 | RAD REPORT ---
EXAM DESCRIPTION: CT - Abdomen Pelvis W/Wo Contrast - 02/09/2019 10:59 am CLINICAL HISTORY: Persistent right lower quadrant pain, equivocal appendicitis on prior study COMPARISON: CT study February 07 TECHNIQUE: Biphasic, helical CT imaging of the abdomen and pelvis was performed following 100 ml non -ionic IV contrast. Oral contrast is in place. All CT scans are performed using dose optimization technique as appropriate and may include automated exposure control or mA/KV adjustment according to patient size. FINDINGS: Atelectasis seen in each lung base. No acute lung base finding. The liver, spleen, and pancreas show no suspicious findings. Gallbladder size is normal. Cholelithias is is present but no acute gallbladder process seen. No biliary tree dilatation. Symmetric renal function is seen with no hydronephrosis or suspicious renal mass. No pyelonephritis o r acute parenchymal process. No bladder abnormalities. No adrenal abnormalities. No gastric dilatation or wall thickening. No dilated small bowel or progressive small bowel finding. Since the prior examination. There been progressive findings in the right lower quadrant. Tip of the cecum is not thickened. The appendix is 10 mm in diameter. Wall has thickened and the common more dre matous than on the prior study. There is now stranding in the periappendiceal fat and a trace amount of reactive fluid. Small mesenteric lymph nodes have developed in the right lower quadrant. Air withi n the appendix as resolved. No free air or abscess. No CT findings for perforation. No pneumatosis or free air. No active colon process. No hernia, mass or bulky lymphadenopathy. No suspicious bony findings. IMPRESSION: Acute appendicitis findings are now present clearly representing a change from the prior day study. No abscess, free air or surgical complication.
[2019-02-09] MEDS ORDERED: GLYCOPYRROLATE 0.2 MG/ML SYR ONE (11:41)
[2019-02-09] MEDS ORDERED: MIDAZOLAM HCL 2 MG/2 ML INJ ONE (11:41)
[2019-02-09] MEDS ORDERED: PROPOFOL 200 MG/20 ML VIAL IV ONE (11:41)
[2019-02-09] MEDS ORDERED: LIDOCAINE 2% MPF 5 ML VIAL ONE (11:42)
[2019-02-09] MEDS ORDERED: FENTANYL CITR 250 MCG/5 ML ONE (11:42)
[2019-02-09] MEDS ORDERED: ROCURONIUM 50 MG/5 ML VIAL IV ONE (11:44)
[2019-02-09] MEDS ORDERED: ONDANSETRON 4 MG/2 ML VIAL ONE (11:44)
[2019-02-09] MEDS ORDERED: Ringers Lactate 1,000 ML IV ONE (12:11)
[2019-02-09] MEDS ORDERED: BUPIVACA 0.25%/EPI 0.0005% MDV 50 ML VIAL ONE (12:20)
[2019-02-09] MEDS ORDERED: EPHEDRINE SULF 50 MG/ML VIAL ONE (12:56)
--- NOTE | 2019-02-09 13:06 | P.OP ---
Quality Assurance Specialist: Cecilia Johnson Preoperative diagnosis: Acute Appendicitis Postoperative diagnosis: Acute Appendicitis Primary procedure: Laparoscopic Appendectomy Anesthesia: GETA + Local Estimated blood loss: <10cc Specimen: Vermiform Appendix Findings: Acute non-perforated appendicitis Complications: None Transferred to: Recovery Room Condition: Good
[2019-02-09] MEDS ORDERED: NEOSTIGMINE 1 MG/ML -10 ML VIAL ONE (13:15)
[2019-02-09] MEDS: MEPERIDINE HCL 50 MG/ML AMP ONE ×2 (13:47→13:55)
[2019-02-09] MEDS: ACETAMINOPHEN 500 MG TAB PO PRN (17:53)
[2019-02-09] MEDS: MORPHINE 4 MG/ML SYR IV PRN (21:26)
--- NOTE | 2019-02-10 00:24 | OP ---
Date of Procedure: 02/09/2019 Surgeon: Francisco Pond MD, Preoperative Diagnosis: Acute nonperforated appendicitis. Postoperative Diagnosis: Acute nonperforated appendicitis. Procedure Performed: Laparoscopic appendectomy. Anesthesia: General endotracheal plus local with 0.25% Marcaine with epinephrine. Estimated Blood Loss: Less than 10 cc. Specimen: Vermiform appendix. Findings: Acute nonperforated appendicitis. Complications: None. Disposition: Transferred to recovery room in good condition. Procedure In Detail: After informed consent was obtained, the patient was brought to the operating r oom and prepped and draped in the usual sterile fashion. After adequate anesthesia was achieved, an infraumbilical area was anesthetized with 0.25% Marcaine, sharply incised. A 5-mm trocar was introdu michelle into the abdomen without evidence of complication. Insufflation was obtained to 15 mmHg at this time. There was no injury to vital structures upon entry into the abdomen. Additional trocar site w as chosen in the left lower quadrant. This was similarly anesthetized and sharply incised. A 5-mm t rocar was introduced into the abdomen without evidence of complication. The umbilical trocar was the n up-sized to a 12 mm under direct visualization without evidence of complication. Additional trocar site was chosen in the right lower quadrant. This was similarly anesthetized and sharply incised. A 5-mm trocar was introduced into the abdomen without evidence of complication. The patient was posi tioned in head down, right side up position. Graspers were used to grasp the patient's appendix. It was found to be grossly enlarged and inflamed, consistent with an acute nonperforated appendicitis. There was some murky fluid in the surrounding area and inflammatory stranding. The mesoappendiceal window was created with the [place] retractor. Endo PARRIS 35 blue load was fired across the base of t he appendix with good approximation of tissues. There were no additional hemostatic maneuvers requir ed and there was no leakage from the staple line. The LigaSure device was then used to take the meso appendix down without any evidence of complication. There was minimal bleeding throughout the proced ure. The appendiceal artery was well ligated. There were no additional hemostatic maneuvers require d. The appendix was then placed in EndoCatch bag and removed through the umbilical trocar, sent off for pathologic examination. The abdomen was then re-insufflated. The area was copiously irrigated m ultiple times until completely clear and suctioned completely dry. The patient was positioned in ansley tral position and the umbilical trocar was removed. The umbilical trocar site was closed using a Trey Cole suture passer and 0 Vicryl in interrupted fashion with good approximation of tissues. T he abdomen was then completely desufflated under direct visualization without evidence of complicatio n. All skin incisions were copiously irrigated and closed with a 4-0 Monocryl in a running fashion. Dermabond was placed over top. The patient tolerated the procedure without evidence of complication , transferred to PACU in good condition. All counts were correct at the end of the case. [place]/ESTEBAN Voice ID: [id number] Report ID: [id number]
[2019-02-10] MEDS: METRONIDAZOLE 500mg IVPB 500 MG/100 ML BAG IV SCH (05:29)
[2019-02-10] MEDS: Levofloxacin500mg IV 500 MG/100 ML BAG IV SCH (08:06)
== END 2019-02-10 10:00 | disposition home or self-care (01) | DRG 343 ==
LOC: ER 20:24 → ERHOLD 02-08 02:54 → 2ND 02-08 03:29
PROVIDERS: ADMIT Hospitalist; ATTEND Internal Medicine
PROC: 0DTJ4ZZ Resection of Appendix, Percutaneous Endoscopic Approach (ICD-10-PCS; principal; 2019-02-09 12:00)
DX: K35.80 Unspecified acute appendicitis (principal); K80.20 Calculus of gallbladder without cholecystitis without obstruction; I10 Essential (primary) hypertension; F17.210 Nicotine dependence, cigarettes, uncomplicated; F10.20 Alcohol dependence, uncomplicated
CPT/HCPCS: 36415; 74177; 74178; 80048; 80053; 80076; 81003; 81015; 83605; 83690; 83735; 84132; 84484; 85025; 85610; 85730; 86850; 86900; 86901; 88304; 93005; 93306; 96361; 96365; 96367; 96374; 96375; 99285; J2175; J2250; J2405; J2543; J2704; J2710; J3010; J7030; Q9967

== ENCOUNTER 2023-03-06 15:22 | Emergency (ER) | payer SELFPAY ==
--- OUTSIDE RECORDS SUMMARY | 2023-03-06 15:26 | XMS REPORT | Continuity of Care Document ---
:1970 Author Organization [facility] t Address [address] [place] [address] [place] [id number] Care Team Providers Name Role Phone GASPER PUTNAM Attending Clinician Unavailable Payers Payer Name Policy Type Policy Number Effective Date Expiration Date S ource INDEMNITY/TRADITIONAL [id number] CHOICE - [employer] Problems This patient has no known problems. Allergies, Adverse Reactions, Alerts This patient has no known allergies or adverse reactions. Medications This patient has no known medications. Procedures Procedure Date / Time Performing Clinician Source Performed CBC W/AUTO DIFF WITH 2022-12-30 13:38:00 [facility] Medicine ERYTHROPOIETIN 2022-12-30 13:38:00 [facility] Encounters Start End Encounter Admission Attending Care Care Encounter Source Date/Time Date/Time Type Type Clinicians Facility Department ID 2022-12-30 2022-12-30 Outpatient MIKE PUTNAM [facility] [id number] [facility] 12:58:58 14:34:12 [facility] Medic[facility] e Results This patient has no known results.
[2023-03-06] MEDS ORDERED: LIDOCAINE 1% 20 ML MDV ONE (15:52)
[2023-03-06] MEDS ORDERED: TETANUS & DIPHTHERIA TOX,ADULT 0.5 ML VIAL ONE (16:02)
--- NOTE | 2023-03-06 16:08 | RAD REPORT ---
EXAM DESCRIPTION: Finger-Thumb Right - 03/06/2023 3:49 pm CLINICAL HISTORY: DEFORMITY COMPARISON: None available TECHNIQUE: Three views of the right ring finger. FINDINGS: Subtle transverse lucency along the neck of the ring finger distal phalanx seen on the AP view only, could represent a nondisplaced fracture, although not visualized on other views. Pronounce d soft tissue swelling and irregularity. Joint alignment is maintained. IMPRESSION: Subtle transverse lucency along the neck of fourth digit distal phalanx, could represent a nondisplaced fracture.
--- NOTE | 2023-03-06 17:23 | EDPHYS ---
Physician Documentation [facility] Name: Seng Daugherty Age: 52 yrs Sex: Male : 1970 Arrival Date: 03/06/2023 Time: 15:22 Bed 13 Private MD: ED Physician Naren Petty HPI: 03/06 15:37 This 52 yrs old Male presents to ER via Ambulatory with complaints of Finger bs3 Laceration. 15:37 52-year-old male no significant past medical history presents with right fourth digit bs3 laceration he was at work several hours ago when he cut it with metal denies any other injuries he cleaned it with water and wrapped it up and then had a sixpack of beer and 2 tequila shots and came here he denies any other injuries he does not know the last time he got a tetanus shot. Historical: - Allergies: 15:28 No Known Allergies; vg1 - PMHx: 15:28 Hypertension; vg1 - Immunization history:: Client reports having NOT received the Covid vaccine. - Social history:: Smoking status: Patient reports the use of cigarette tobacco products, smokes one pack cigarettes per day. ROS: 15:37 Constitutional: Negative for fever, chills bs3 15:37 All other systems are negative. Exam: 15:37 Constitutional: This is a well developed, well nourished patient who is awake, alert, bs3 and in no acute distress. Head/Face: Normocephalic, atraumatic. Eyes: Pupils equal round and reactive to light, extra-ocular motions intact. Lids and lashes normal. ENT: mmm, no posterior phyarngeal erythema Neck: Trachea midline, no thyromegaly, no neck stiffness Chest/axilla: Normal chest wall appearance and motion. Nontender with no deformity. No lesions are appreciated. Cardiovascular: Regular rate and rhythm with a normal S1 and S2. symmetric pulses in upper extremities MS/ Extremity: Right fourth digit with active oozing from the distal fingertip unable to visualize fully, patient has a laceration through the nail in multiple parts and through the lateral aspect of the finger is complex with macerated skin Neuro: Awake and alert, GCS 15, oriented to person, place, time, and situation. Cranial nerves II-XII grossly intact. Motor strength 5/5 in all extremities. Sensory grossly intact. Psych: Awake, alert, with orientation to person, place and time. Behavior, mood, and affect are within normal limits. Vital Signs: 15:23 BP 161 / 98; Pulse 90; Resp 16; Temp 98.2; Pulse Ox 100% ; Weight 72.57 kg; Height 5 vg1 ft. 6 in. ; 17:30 BP 158 / 89; Pulse 90; Resp 17; Pulse Ox 100% ; jl7 15:23 Body Mass Index 25.82 (72.57 kg, 167.64 cm) vg1 Laceration: 17:16 Wound Repair of 3cm ( 1.2in ) subcutaneous laceration to right hand. Distal bs3 neuro/vascular/tendon intact. Anesthesia: Digital block administered with 4 mls of 1% lidocaine. Wound prep: Moderate cleansing, Wound irrigation with saline by me, Wound explored moderately, Copious irrigation. Skin closed with 4 4-0 Prolene using 4 stitches were done 3 through the skin and 1 through the nail. Dressed with Xeroform. Patient tolerated well. MDM: 15:26 Patient medically screened. bs3 15:37 Data reviewed: vital signs, nurses notes. ED course: Patient with finger laceration bs3 will evaluate for bone involvement will do a finger block and then better visualize. 17:16 ED course: laceration of finger with nailbed involvement, it was cleaned aggresively bs3 and part of the nail was tacked down , I then sutured the finger laceration, return prec given for any signs of infection, increased pain. . 03/06 15:36 Order name: Finger-Thumb RIGHT XRAY; Complete Time: 17:16 bs3 Administered Medications: 16:00 Drug: Tetanus-Diphtheria Toxoid IM Adult 0.5 ml {Clinical Data Management Director: [facility]. Exp: kr3 03/12/2024. Lot #: [id number]. } Route: IM; Site: left deltoid; 17:30 Follow up: Response: No adverse reaction jl7 16:21 Drug: Lidocaine Infiltration (1 %) 50 mg {Note: Administered by Dr. Petty at bedside kr3 for procedure.} Volume: 20 ml; Route: Infiltration; 17:30 Follow up: Response: No adverse reaction jl7 Disposition Summary: 03/06/23 17:23 Discharge Ordered Location: Home bs3 Problem: new bs3 Symptoms: have improved bs3 Condition: Stable bs3 Diagnosis - Laceration without foreign body of unspecified finger with damage to nail bs3 Followup: bs3 - With: Private Physician - When: 5 - 6 days - Reason: Re-evaluation by your physician Discharge Instructions: - Discharge Summary Sheet bs3 - Sutured Wound Care, [id number] bs3 Forms: - Medication Reconciliation Form bs3 - Thank You Letter bs3 - Antibiotic Education bs3 - Prescription Opioid Use bs3 Prescriptions: - Cephalexin 500 mg Oral Capsule - take 1 capsule by ORAL route every 6 hours for 7 days; 28 capsule; Refills: 0, bs3 Product Selection Permitted Signatures: Dispatcher [employer] EDMS Lelo Bacon RN RN vg1 Christal Beasley RN RN kr3 Naren Petty MD MD bs3 Janeth Barton RN jl7 Corrections: (The following items were deleted from the chart) 17:17 15:37 Constitutional: This is a well developed, well nourished patient who is awake, bs3 alert, and in no acute distress. Head/Face: Normocephalic, atraumatic. Eyes: Pupils equal round and reactive to light, extra-ocular motions intact. Lids and lashes normal. ENT: mmm, no posterior phyarngeal erythema Neck: Trachea midline, no thyromegaly, no neck stiffness Chest/axilla: Normal chest wall appearance and motion. Nontender with no deformity. No lesions are appreciated. Cardiovascular: Regular rate and rhythm with a normal S1 and S2. symmetric pulses in upper extremities MS/ Extremity: Right fourth digit with active oozing from the distal fingertip unable to visualize fully Neuro: Awake and alert, GCS 15, oriented to person, place, time, and situation. Cranial nerves II-XII grossly intact. Motor strength 5/5 in all extremities. Sensory grossly intact. Psych: Awake, alert, with orientation to person, place and time. Behavior, mood, and affect are within normal limits. bs3
--- NOTE | 2023-03-06 17:23 | ER ---
Nurse's Notes [facility] Name: Seng Daugherty Age: 52 yrs Sex: Male : 1970 Arrival Date: 03/06/2023 Time: 15:22 Bed 13 Private MD: Diagnosis: Laceration without foreign body of unspecified finger with damage to nail Presentation: 03/06 15:23 Chief complaint: Patient states: Was working and appears to have a laceration to Right vg1 ring finger. Coronavirus screen: Vaccine status: Patient reports being unvaccinated. Client denies travel out of the [place] in the last 14 days. Ebola Screen: Patient negative for fever greater than or equal to 101.5 degrees Fahrenheit, and additional compatible Ebola Virus Disease symptoms Patient denies exposure to infectious person. Patient denies travel to an Ebola-affected area in the 21 days before illness onset. Initial Sepsis Screen: Does the patient meet any 2 criteria? No. Patient's initial sepsis screen is negative. Does the patient have a suspected source of infection? No. Patient's initial sepsis screen is negative. Risk Assessment: Do you want to hurt yourself or someone else? Patient reports no desire to harm self or others. Onset of symptoms was March 06, 2023. 15:23 Method Of Arrival: Ambulatory vg1 15:23 Acuity: JARED 4 vg1 Triage Assessment: 15:28 General: Appears comfortable, Behavior is calm. Pain: Complains of pain in dorsal vg1 aspect of middle phalanx of right ring finger and dorsal aspect of proximal phalanx of right ring finger Pain currently is 8 out of 10 on a pain scale. Derm: appears to have a laceration to right ring finger. Historical: - Allergies: 15:28 No Known Allergies; vg1 - PMHx: 15:28 Hypertension; vg1 - Immunization history:: Client reports having NOT received the Covid vaccine. - Social history:: Smoking status: Patient reports the use of cigarette tobacco products, smokes one pack cigarettes per day. Screenin:19 [facility] ED Fall Risk Assessment (Adult) History of falling in the last 3 months, kr3 including since admission No falls in past 3 months (0 pts). Abuse screen: Denies threats or abuse. Nutritional screening: No deficits noted. Tuberculosis screening: No symptoms or risk factors identified. Assessment: 16:11 General: Appears in no apparent distress. comfortable, Behavior is calm, cooperative. kr3 Pain: Complains of pain in dorsal aspect of proximal phalanx of right ring finger. Neuro: Level of Consciousness is awake, alert, obeys commands, Oriented to person, place, time, situation. Cardiovascular: Patient's skin is warm and dry. Respiratory: Airway is patent Respiratory effort is even, unlabored, Respiratory pattern is regular, symmetrical. GI: No signs and/or symptoms were reported involving the gastrointestinal system. : No signs and/or symptoms were reported regarding the genitourinary system. EENT: No signs and/or symptoms were reported regarding the EENT system. Derm: No signs and/or symptoms reported regarding the dermatologic system. Musculoskeletal: No signs and/or symptoms reported regarding the musculoskeletal system. Vital Signs: 15:23 BP 161 / 98; Pulse 90; Resp 16; Temp 98.2; Pulse Ox 100% ; Weight 72.57 kg; Height 5 vg1 ft. 6 in. ; 17:30 BP 158 / 89; Pulse 90; Resp 17; Pulse Ox 100% ; jl7 15:23 Body Mass Index 25.82 (72.57 kg, 167.64 cm) vg1 ED Course: 15:23 Patient arrived in ED. rg4 15:26 Naren Petty MD is Attending Physician. bs3 15:28 Triage completed. vg1 15:28 Arm band placed on. vg1 15:35 Bed in low position. Call light in reach. Side rails up X 1. kr3 15:42 Christal Beasley RN is Primary Nurse. kr3 15:51 Finger-Thumb RIGHT XRAY In Process Unspecified. EDMS 17:30 Assist provider with laceration repair on dorsal aspect of proximal phalanx of right jl7 ring finger and dorsal aspect of middle phalanx of right ring finger using sutures. Set up tray. Performed by Naren Petty MD Dressed with 4X4s, Patient tolerated well. Patient did not have IV access during this emergency room visit. Administered Medications: 16:00 Drug: Tetanus-Diphtheria Toxoid IM Adult 0.5 ml {Photograph Inspector: [facility]. Exp: kr3 03/12/2024. Lot #: [id number]. } Route: IM; Site: left deltoid; 17:30 Follow up: Response: No adverse reaction jl7 16:21 Drug: Lidocaine Infiltration (1 %) 50 mg {Note: Administered by Dr. Petty at bedside kr3 for procedure.} Volume: 20 ml; Route: Infiltration; 17:30 Follow up: Response: No adverse reaction jl7 Medication: 16:18 Vaccine Information Statement (VIS) provided today. Questions and/or concerns kr3 addressed. VIS edition date: May 08, 2021. Outcome: 17:23 Discharge ordered by MD. rincon 17:30 Discharged to home ambulatory. 7 17:30 Condition: stable 17:30 Discharge instructions given to patient, family, Instructed on discharge instructions, follow up and referral plans. medication usage, Demonstrated understanding of instructions, follow-up care, medications, Prescriptions given X 1. 17:32 Patient left the ED. jl7 Signatures: Dispatcher [employer] Mindi Allen4 Janeth Barton RN RN jl7 Lelo Bacon RN RN vg1 Christal Beasley RN RN kr3 Naren Petty MD MD bs3
[2023-03-06 17:47] VITALS: TEMP 98.2; O2SAT 100
[2023-03-06 17:49] VITALS: BP 158/89
== END 2023-03-06 17:32 | disposition home or self-care (01) ==
LOC: ER 15:22
PROC: 0HQFXZZ Repair Right Hand Skin, External Approach (ICD-10-PCS; principal; 2023-03-06)
DX: S61.411A Laceration without foreign body of right hand, initial encounter (principal); Z23 Encounter for immunization; F17.210 Nicotine dependence, cigarettes, uncomplicated; I10 Essential (primary) hypertension
CPT/HCPCS: 90471; 90714; 99284; J2001